=== PATIENT | male | born 1960 | race Caucasian/White ===

== ENCOUNTER 2017-05-29 18:30 | Inpatient (IN) ==
[2017-05-29 19:27] LABS: Basophils # 0.1 10*3/uL (0.0-0.2); Basophils % 0.8 % (0.0-0.8)
[2017-05-29 19:33] LABS: Eosinophils # 0.2 10*3/uL (0.0-0.87); Eosinophils % 2.7 % (0.00-10.9); Hemoglobin 15.2 GM/DL (14.0-18.0); Immature Granulocytes % 0.8 %; Immature Granulocytes Absolute 0.07 #; Lymphocytes # 1.9 10*3/uL (1.4-4.0); Lymphocytes % 21.1 % (21.2-54.2); Mean Corpuscular HGB Conc 36.2 GM/DL (32-36); Mean Corpuscular Hemoglobin 33 PG (27-34); Mean Corpuscular Volume 90.9 FL (87-102); Mean Platelet Volume 9.1 FL (9.6-12.0); Monocytes # 0.8 10*3/uL (0.11-0.8); Monocytes % 9.2 % (1.7-12.7); Neutrophils # 5.7 10*3/uL (1.4-7.4); Neutrophils % 65.4 % (38.7-73.9); Platelet Count 304 T/CUMM (130-400); Red Blood Count 4.62 MC/CUMM (3.8-5.5); White Blood Count 8.8 T/CUMM (4-12)
[2017-05-29] MEDS ORDERED: KETOROLAC 30 MG/1 ML VIAL IV STA (19:45)
[2017-05-29] MEDS ORDERED: KETOROLAC 30 MG/1 ML VIAL ONE (19:57)
[2017-05-29 19:58] LABS: Blood Urea Nitrogen 7 MG/DL (7-18); Calcium 9.1 MG/DL (8.5-10.1); Glucose 124 MG/DL (74-106); Osmolality,Calculated 245.8 MOS/KG (273-304); Potassium 3.6 MMOL/L (3.5-5.1); Sodium 123 MMOL/L (136-145); Troponin I Only < 0.015 NG/ML (0.00-0.045)
[2017-05-29] MEDS ORDERED: SODIUM CHLORIDE 0.9% 500 ML IV STA (20:12)
[2017-05-29] MEDS ORDERED: ERGOCALCIFEROL 50,000 UNIT CAPSULE PO SCH (22:54)
[2017-05-29] MEDS ORDERED: MORPHINE 2 MG/1 ML SYRINGE IV PRN (22:54)
[2017-05-29] MEDS ORDERED: traZODone 50 MG TABLET PO PRN (22:54)
[2017-05-29] MEDS ORDERED: ONDANSETRON 4 MG/2 ML VIAL IV PRN (22:54)
[2017-05-29] MEDS ORDERED: ACETAMINOPHEN 325 MG TABLET PO PRN (22:54)
[2017-05-30 00:24] LABS: Hemoglobin A1C 5.7 % (4.2-6.3)
[2017-05-30 00:31] LABS: Carbamazepine (Tegretol) 14.2 UG/ML (4.0-12.0)
[2017-05-30] MEDS: ENOXAPARIN 40 MG/0.4 ML SYRINGE SUBCUT SCH ×2 (00:34→21:10)
[2017-05-30] MEDS: SODIUM CHLORIDE 0.9% 1,000 ML IV SCH ×2 (00:34→15:49)
[2017-05-30 00:39] LABS: Risk Ratio 5.19; Thyroid Stimulating Hormone 3.09 uIU/ml (0.358-3.74); VLDL CHOLESTEROL 28.2 MG/DL
[2017-05-30 00:51] LABS: Potassium 3.8 MMOL/L (3.5-5.1)
[2017-05-30 00:54] LABS: Calcium 9.3 MG/DL (8.5-10.1); Osmolality,Calculated 247.6 MOS/KG (273-304)
[2017-05-30 06:28] LABS: Bacteria,Urine Occasional /HPF (Few); Blood, Urine Negative (Negative); Glucose,Urine (UA) Negative (Negative); Hyaline Casts,Urine 13 /LPF (0-3); Ketones,Urine 5 mg/dL (Negative); Mucus,Urine Moderate /LPF (Occasional); Nitrite,Urine Negative (Negative); Protein,Urine 30 MG/DL; RBC,Urine 6 /HPF (0-4); Squamous Epithelial Cell,Urine Occasional /HPF (0-10); Urine Color Amber (Yellow); Urine Specific Gravity 1.028 (1.001-1.035); Urine Urobilinogen < 2.0 EU/DL (0.2-1.0); WBC,Urine 77 /HPF (0-6)
[2017-05-30 06:36] LABS: Apearance,Urine Slightly Hazy (Clear); Bilirubin,Urine Moderate mg/dL (Negative)
[2017-05-30] MEDS ORDERED: LEVOTHYROXINE 25 MCG TABLET PO SCH (07:00)
[2017-05-30] MEDS ORDERED: CHROMIUM PICOLINATE 200 MCG PO SCH (09:00)
[2017-05-30] MEDS: PANTOPRAZOLE 40 MG TABLET PO SCH (09:09)
[2017-05-30] MEDS: METHOCARBAMOL 500 MG TABLET PO SCH ×3 (09:10→21:14)
[2017-05-30] MEDS: GABAPENTIN 300 MG CAPSULE PO SCH ×4 (09:10→21:12)
[2017-05-30] MEDS: DULoxetine 30 MG CAPSULE PO SCH (09:10)
[2017-05-30] MEDS: DOCUSATE SODIUM 100 MG CAPSULE PO SCH ×2 (09:10→21:13)
[2017-05-30] MEDS: CARBIDOPA/LEVODOPA 25-250 MG TABLET PO SCH ×4 (09:10→21:14)
[2017-05-30] MEDS: ENTACAPONE 200 MG TABLET PO SCH ×4 (09:11→21:14)
[2017-05-30] MEDS: carBAMazepine 200 MG TABLET PO SCH ×3 (09:11→21:11)
[2017-05-30] MEDS: MEMANTINE 10 MG TABLET PO SCH ×2 (14:13→21:14)
[2017-05-30] MEDS: levETIRAcetam 250 MG TABLET PO SCH ×2 (14:13→21:12)
[2017-05-30] MEDS: ASPIRIN 325 MG TABLET PO SCH (21:14)
[2017-05-31] MEDS: SODIUM CHLORIDE 0.9% 1,000 ML IV SCH ×2 (04:10→17:31)
[2017-05-31] MEDS: LEVOTHYROXINE 25 MCG TABLET PO SCH (06:15)
[2017-05-31 09:04] LABS: Basophils # 0.1 10*3/uL (0.0-0.2); Basophils % 0.8 % (0.0-0.8); Eosinophils # 0.1 10*3/uL (0.0-0.87); Eosinophils % 1.8 % (0.00-10.9); Hematocrit 40.2 VOL% (42.0-52.0); Hemoglobin 14.5 GM/DL (14.0-18.0); Immature Granulocytes % 0.8 %; Immature Granulocytes Absolute 0.06 #; Mean Corpuscular HGB Conc 36.1 GM/DL (32-36); Mean Corpuscular Hemoglobin 33 PG (27-34); Mean Corpuscular Volume 92.4 FL (87-102); Mean Platelet Volume 9.6 FL (9.6-12.0); Monocytes # 0.8 10*3/uL (0.11-0.8); Monocytes % 10.4 % (1.7-12.7); Neutrophils # 4.7 10*3/uL (1.4-7.4); Neutrophils % 60.2 % (38.7-73.9); Platelet Count 315 T/CUMM (130-400); Red Blood Count 4.35 MC/CUMM (3.8-5.5); Red Cell Distribution Width 13.5 % (9.3-17.3); White Blood Count 7.8 T/CUMM (4-12)
[2017-05-31 09:49] LABS: Osmolality,Calculated 266.2 MOS/KG (273-304); Potassium 3.6 MMOL/L (3.5-5.1)
[2017-05-31] MEDS: DULoxetine 30 MG CAPSULE PO SCH (10:04)
[2017-05-31] MEDS: DOCUSATE SODIUM 100 MG CAPSULE PO SCH ×2 (10:04→21:35)
[2017-05-31] MEDS: GABAPENTIN 300 MG CAPSULE PO SCH ×4 (10:04→21:35)
[2017-05-31] MEDS: METHOCARBAMOL 500 MG TABLET PO SCH ×3 (10:05→21:36)
[2017-05-31] MEDS: CARBIDOPA/LEVODOPA 25-250 MG TABLET PO SCH ×4 (10:05→21:36)
[2017-05-31] MEDS: PANTOPRAZOLE 40 MG TABLET PO SCH (10:05)
[2017-05-31] MEDS: carBAMazepine 200 MG TABLET PO SCH ×3 (10:05→21:35)
[2017-05-31] MEDS: ENTACAPONE 200 MG TABLET PO SCH ×4 (10:06→21:36)
[2017-05-31] MEDS: levETIRAcetam 250 MG TABLET PO SCH ×2 (13:19→20:18)
[2017-05-31] MEDS: MEMANTINE 10 MG TABLET PO SCH ×2 (13:20→20:19)
[2017-05-31] MEDS: ASPIRIN 325 MG TABLET PO SCH (21:35)
[2017-05-31] MEDS: ENOXAPARIN 40 MG/0.4 ML SYRINGE SUBCUT SCH (21:36)
[2017-06-01] MEDS: LEVOTHYROXINE 25 MCG TABLET PO SCH (06:00)
[2017-06-01] MEDS: SODIUM CHLORIDE 0.9% 1,000 ML IV SCH (06:01)
[2017-06-01 06:23] LABS: Calcium 8.3 MG/DL (8.5-10.1); Osmolality,Calculated 268.1 MOS/KG (273-304); Potassium 3.7 MMOL/L (3.5-5.1)
[2017-06-01] MEDS: carBAMazepine 200 MG TABLET PO SCH (09:19)
[2017-06-01] MEDS: METHOCARBAMOL 500 MG TABLET PO SCH (09:20)
[2017-06-01] MEDS: CARBIDOPA/LEVODOPA 25-250 MG TABLET PO SCH (09:20)
[2017-06-01] MEDS: ENTACAPONE 200 MG TABLET PO SCH ×2 (09:20→13:30)
[2017-06-01] MEDS: GABAPENTIN 300 MG CAPSULE PO SCH (09:20)
[2017-06-01] MEDS: DOCUSATE SODIUM 100 MG CAPSULE PO SCH (09:20)
[2017-06-01] MEDS: DULoxetine 30 MG CAPSULE PO SCH (09:21)
[2017-06-01] MEDS: PANTOPRAZOLE 40 MG TABLET PO SCH (09:21)
[2017-06-01 12:12] VITALS: BP 125/77
[2017-06-01] MEDS: levETIRAcetam 250 MG TABLET PO SCH (12:20)
[2017-06-01] MEDS: MEMANTINE 10 MG TABLET PO SCH (12:20)
== END 2017-06-01 13:35 | disposition home or self-care (01) | DRG 312 ==
LOC: EDBD → EDUNIT# → N.ED 18:30 → N.EDINP 22:02 → N.2E 22:28